=== PATIENT | female | born 1975 | race Two or more races ===

== ENCOUNTER 2023-07-11 06:04 | Inpatient (IN) | payer OTHER ==
[~2023-07-11] VITALS: Ht 167.6 cm; Wt 133.0 kg
[2023-07-11] VITALS (10 sets, daily range): BP systolic 108–159; BP diastolic 31–79; PULSE 86–121; RESP 20–38; O2SAT 88–98
[2023-07-11 07:04] LABS: Basophils # (auto) 0.1 10 ^3/uL (0-0.2); Basophils % (auto) 0.3 % (0.0-2.0); Eosinophils # (auto) 0.3 10 ^3/uL (0-0.8); Eosinophils % (auto) 1.2 % (0.0-7.0); Hematocrit 45.2 % (36.0-46.0); Hemoglobin 14.3 g/dL (12.2-16.2); Lymphocytes # (auto) 6.5 10 ^3/uL (0.4-5.4); Lymphocytes % (auto) 24.4 % (10.0-50.0); Mean Corpuscular Hemoglobin 28.9 pg (28.0-32.0); Mean Corpuscular Hgb Conc. 31.5 g/dL (32.0-36.0); Mean Corpuscular Volume 91.7 fL (80.0-100.0); Monocytes # (auto) 1.2 10 ^3/uL (0-1.3); Monocytes % (auto) 4.4 % (0.0-12.0); Neutrophils # (auto) 18.5 10 ^3/uL (1.6-8.6); Neutrophils % (auto) 69.7 % (37.0-80.0); Nucleated Red Blood Cells % 0.2 %; Red Blood Cells 4.93 10^6/uL (4.0-5.20); Red Cell Distribution Width 14.3 % (11.8-14.3); White Blood Cell 26.6 10^3/uL (4.4-10.8)
[2023-07-11 07:08] LABS: Chloride 105 mmol/L (98-107); Potassium 3.6 mmol/L (3.5-5.1); Sodium 138 mmol/L (136-145)
[2023-07-11 07:09] LABS: Anion Gap 19 (5-15); Calcium 8.8 mg/dL (8.5-10.1); Carbon Dioxide 14 mmol/L (20-30)
[2023-07-11 07:12] LABS: Base Excess -11.9 mmol/L (-2.0-2.0)
[2023-07-11 07:14] LABS: BUN/Creatinine Ratio 8.7 (10.0-20.0); Blood Urea Nitrogen 9 mg/dL (9-23); Glucose 268 mg/dL (74-106)
[2023-07-11] MEDS: fentaNYL Drip 2500mCg/250mlNS 250 ML IV SCH (07:20)
[2023-07-11] MEDS: PROPOFOL 100 ML IV SCH (07:20)
[2023-07-11] MEDS: PROPOFOL 100 ML IV ONE (07:47)
[2023-07-11] MEDS: ROCURONIUM 10MG/ML 10ML VIAL IV ONE ×2 (07:47→07:52)
[2023-07-11] MEDS: fentaNYL Drip 2500mCg/250mlNS 250 ML IV ONE (07:47)
[2023-07-11 09:20] LABS: Base Excess -9.3 mmol/L (-2.0-2.0)
[2023-07-11 09:49] LABS: Urine Bacteria FEW /hpf (None Seen); Urine Blood 1+ /uL (Negative); Urine Protein, UAD 3+ (Negative); Urine Specific Gravity 1.012 (1.001-1.035); Urine Urobilinogen Normal (Negative); Urine WBC 26 /hpf (0 - 5); Urine pH 6.5 (5.0-9.0)
[2023-07-11 09:50] LABS: Urine Clarity CLOUDY (Clear); Urine Color Yellow (Yellow)
[2023-07-11 10:03] LABS: Amphetamine Screen, Urine Neg (NEGATIVE); Barbiturate Scree,Urine Neg (NEGATIVE); Benzodiazephine Screen, Urine Neg (NEGATIVE); Cannabinoid Screen, Urine Neg (NEGATIVE); Cocaine Screen, Urine Neg (NEGATIVE); Opiate Scree,Urine Neg (NEGATIVE); Phencyclidine Screen, Urine Neg (NEGATIVE)
[2023-07-11] MEDS ORDERED: SPIR25TA8 PO (11:23)
[2023-07-11] MEDS ORDERED: FURO40TA4 PO (11:23)
[2023-07-11] MEDS ORDERED: CICL160A2 IN (11:23)
[2023-07-11] MEDS ORDERED: NORT25CA PO (11:23)
[2023-07-11] MEDS ORDERED: OMEP20TA PO (11:23)
[2023-07-11] MEDS ORDERED: [UNRECOGNIZED DRUG - CODE] SC (11:23)
[2023-07-11] MEDS ORDERED: POTA-36 PO (11:23)
[2023-07-11] MEDS ORDERED: DILT60TA PO (11:23)
[2023-07-11] MEDS ORDERED: FERR1TAB31 PO (11:23)
[2023-07-11] MEDS ORDERED: ACIT25CA2 PO (11:23)
[2023-07-11] MEDS ORDERED: NITROGLYCERIN 0.4 MG SL TAB SL PRN (11:30)
[2023-07-11] MEDS ORDERED: MORPHINE SULFATE INJ 2 MG/ml SYRG IV PRN (11:30)
[2023-07-11] MEDS ORDERED: MORPHINE SULFATE 4 MG/ML SYR/VIAL IV PRN (11:30)
[2023-07-11] MEDS ORDERED: DEXTROSE (50%) 50ML SYRG IV PRN (11:30)
[2023-07-11] MEDS: SODIUM CHLORIDE 0.9% 1,000 ML IV ONE ×2 (11:45→13:38)
[2023-07-11] MEDS: LACTULOSE 20Gm/30ML SOLN PO ONE (11:45)
[2023-07-11] MEDS: PANTOPRAZOLE 40 MG/10 ML VIAL INJ IV ONE (11:46)
[2023-07-11] MEDS: cefTRIAXone 1GM/50ML D5W 50 ML IV ONE (11:46)
[2023-07-11 11:55] LABS: Blood Alcohol < 3.0 mg/dL (<10); LDL Cholesterol 117 mg/dL (< 100); Triglycerides 100 mg/dL (< 150)
[2023-07-11 11:56] LABS: Lactic Acid w/Reflex 8.2 mmol/L (0.4-2.0)
[2023-07-11 11:57] LABS: Cholesterol 177 mg/dL (< 200); HDL Cholesterol 49 mg/dL (40-59)
[2023-07-11] MEDS: InsuLIN REG 1unit/0.01ml Soln (100units/ml) SC SCH (12:13)
[2023-07-11] MEDS: ACCU-CHEK COMFORT CURVE STRIP VI SCH (12:13)
[2023-07-11 12:46] LABS: Alanine Aminotransferase 267 U/L (7-40); Albumin 4.1 g/dL (3.2-4.8); Alkaline Phosphatase 98 U/L (46-116); Anion Gap 15 (5-15); Aspartate Aminotransferase 443 U/L (13-40); BUN/Creatinine Ratio 16.2 (10.0-20.0); Blood Urea Nitrogen 18 mg/dL (9-23); Carbon Dioxide 18 mmol/L (20-30); Chloride 107 mmol/L (98-107); Glucose 178 mg/dL (74-106); Potassium 3.7 mmol/L (3.5-5.1); Sodium 140 mmol/L (136-145)
[2023-07-11 12:47] LABS: Bilirubin, Total 0.3 mg/dL (0.2-1.0); Total Protein 6.2 g/dL (5.7-8.2)
[2023-07-11 13:02] LABS: Lactic Acid w/Reflex 3.7 mmol/L (0.4-2.0)
[2023-07-11] MEDS: IPRATROPIUM BROM 0.5 MG/2.5ML INH SOL NEB SCH (13:06)
[2023-07-11] MEDS: ALBUTEROL SULF 2.5 MG/0.5ML(0.5%) NEB SOLN NEB SCH (13:07)
[2023-07-11] MEDS: SODIUM BICARB 8.4% 50Meq/50ml SYR Vial IV ONE (13:40)
[2023-07-11 14:30] LABS: Hematocrit 41.2 % (36.0-46.0); Hemoglobin 13.3 g/dL (12.2-16.2); Mean Corpuscular Hemoglobin 28.4 pg (28.0-32.0); Mean Corpuscular Hgb Conc. 32.2 g/dL (32.0-36.0); Red Blood Cells 4.68 10^6/uL (4.0-5.20); Red Cell Distribution Width 14.2 % (11.8-14.3); White Blood Cell 20.6 10^3/uL (4.4-10.8)
[2023-07-11 14:38] LABS: Basophils % (manual) 0 (0.0-2.0); Blast Cells 0; Eosinophils % (manual) 0 (0-7); Metamyelocytes % 0; Myelocytes % 0; Promyelocytes % 0; Reactive Lymphocytes 0
[2023-07-11 14:44] LABS: INR 1.02 (0.9-1.15); Partial Thromboplastin Time 25.6 SEC (24.5-34.5); Prothrombin Time 10.7 sec (9.3-11.8)
[2023-07-11 14:47] LABS: Band Neutrophils % (manual) 6; Lymphocytes % (manual) 4 (10.0-50.0); Monocytes % (manual) 5 (0-12); Platelet Estimate Adequate; RBC Morphology Normal
[2023-07-11] MEDS: SODIUM CHLORIDE 0.9% 1,000 ML IV SCH (17:00)
[2023-07-11] MEDS: HEPARIN SODIUM (PORCINE) 5000 UNITS/ML 1ML VIAL IV ONE (17:26)
[2023-07-11] MEDS: HEPARIN DRIP/D5W 100UNITS/ML 250 ML IV SCH (18:29)
[2023-07-11] MEDS: LACTULOSE 20Gm/30ML SOLN PO SCH (22:43)
[2023-07-12] VITALS (68 sets, daily range): BP systolic 84–120; BP diastolic 39–69; PULSE 88–105; RESP 14–38; TEMP 96.9–99.6; O2SAT 85–100
[2023-07-12 03:20] LABS: INR 1.12 (0.9-1.15); Partial Thromboplastin Time 45.7 SEC (24.5-34.5); Prothrombin Time 11.7 sec (9.3-11.8)
[2023-07-12] MEDS: MIDAZOLAM DRIP 50 mg/50mL 50 ML IV SCH ×2 (03:50→14:40)
[2023-07-12] MEDS: HEPARIN DRIP/D5W 100UNITS/ML 250 ML IV SCH (03:50)
[2023-07-12 04:44] LABS: Basophils # (auto) 0.1 10 ^3/uL (0-0.2); Basophils % (auto) 0.4 % (0.0-2.0); Eosinophils # (auto) 0.3 10 ^3/uL (0-0.8); Eosinophils % (auto) 2.1 % (0.0-7.0); Hematocrit 38.8 % (36.0-46.0); Hemoglobin 12.3 g/dL (12.2-16.2); Lymphocytes % (auto) 12.6 % (10.0-50.0); Mean Corpuscular Hemoglobin 28.4 pg (28.0-32.0); Mean Corpuscular Hgb Conc. 31.7 g/dL (32.0-36.0); Mean Corpuscular Volume 89.3 fL (80.0-100.0); Monocytes # (auto) 0.8 10 ^3/uL (0-1.3); Monocytes % (auto) 5.1 % (0.0-12.0); Neutrophils # (auto) 12.4 10 ^3/uL (1.6-8.6); Neutrophils % (auto) 79.8 % (37.0-80.0); Red Blood Cells 4.34 10^6/uL (4.0-5.20); Red Cell Distribution Width 14.6 % (11.8-14.3); White Blood Cell 15.6 10^3/uL (4.4-10.8)
[2023-07-12 05:07] LABS: Alanine Aminotransferase 175 U/L (7-40); Albumin 3.6 g/dL (3.2-4.8); Alkaline Phosphatase 75 U/L (46-116); Anion Gap 13 (5-15); Aspartate Aminotransferase 115 U/L (13-40); BUN/Creatinine Ratio 11.7 (10.0-20.0); Bilirubin, Total 0.3 mg/dL (0.2-1.0); Blood Urea Nitrogen 12 mg/dL (9-23); Calcium 8.3 mg/dL (8.5-10.1); Carbon Dioxide 19 mmol/L (20-30); Chloride 108 mmol/L (98-107); Glucose 125 mg/dL (74-106); Potassium 3.5 mmol/L (3.5-5.1); Sodium 140 mmol/L (136-145)
[2023-07-12 05:49] LABS: Urine Bacteria None Seen /hpf (None Seen)
[2023-07-12 06:28] LABS: Urine Blood 3+ /uL (Negative); Urine Clarity Turbid (Clear); Urine Color Light-Brown (Yellow); Urine Protein, UAD 1+ (Negative); Urine Specific Gravity 1.049 (1.001-1.035); Urine Urobilinogen Normal (Negative); Urine WBC 7 /hpf (0 - 5)
[2023-07-12 07:08] LABS: Base Excess -7.1 mmol/L (-2.0-2.0)
[2023-07-12] MEDS ORDERED: VANCOMYCIN PER PHARMACY 0 MG IV SCH (07:30)
[2023-07-12] MEDS: MEROPENEM 1GM IVPB 50 ML IV SCH (07:30)
[2023-07-12 08:48] LABS: Hepatitis B Core Total AB Negative (Negative)
[2023-07-12] MEDS ORDERED: cefTRIAXone 1GM/50ML D5W 50 ML IV SCH (09:00)
[2023-07-12] MEDS: VANCOMYCIN 1GM/200ML 200 ML IV ONE (09:09)
[2023-07-12 09:13] LABS: Lactic Acid w/Reflex 3.2 mmol/L (0.4-2.0)
[2023-07-12 09:21] LABS: INR 1.13 (0.9-1.15); Prothrombin Time 11.8 sec (9.3-11.8)
[2023-07-12 09:31] LABS: Partial Thromboplastin Time 85.7 SEC (24.5-34.5)
[2023-07-12 09:38] LABS: Hepatitis A Total Antibody Positive (Negative); Hepatitis B Surface Antibody Negative (Negative); Hepatitis B Surface Antigen Negative (Negative); Hepatitis C Antibody Negative (Negative)
[2023-07-12] MEDS ORDERED: dilTIAZem HCL 60 MG TAB PO SCH (10:00)
[2023-07-12] MEDS ORDERED: ACITRETIN 25 MG PO SCH (10:00)
[2023-07-12 10:56] LABS: Free T3 2.24 pg/mL (2.3-4.2)
[2023-07-12 11:00] LABS: Free T4 (Free Thyroxine) 0.76 ng/dL (0.89-1.76)
[2023-07-12] MEDS: ROCURONIUM 10MG/ML 10ML VIAL IV ONE ×2 (11:00→16:29)
[2023-07-12] MEDS: fentaNYL Drip 2500mCg/250mlNS 250 ML IV SCH (11:00)
[2023-07-12] MEDS: NOREPINEPHRINE 8 MG/250ML KIT 250 ML IV SCH (11:15)
[2023-07-12] MEDS: NOREPINEPHRINE 8 MG/250ML KIT 250 ML IV ONE (11:15)
[2023-07-12] MEDS ORDERED: LACTULOSE 20Gm/30ML SOLN PO SCH (12:00)
[2023-07-12 13:38] LABS: Base Excess -9.4 mmol/L (-2.0-2.0)
[2023-07-12] MEDS: AMIODARONE 450mg/250ml AE 250 ML IV SCH ×2 (14:16→18:30)
[2023-07-12] MEDS: PROPOFOL 100 ML IV SCH (14:40)
[2023-07-12 15:32] LABS: Base Excess -9.4 mmol/L (-2.0-2.0)
[2023-07-12 16:03] LABS: Alanine Aminotransferase 154 U/L (7-40); Albumin 3.7 g/dL (3.2-4.8); Alkaline Phosphatase 70 U/L (46-116); Anion Gap 7 (5-15); Aspartate Aminotransferase 74 U/L (13-40); BUN/Creatinine Ratio 12.6 (10.0-20.0); Blood Urea Nitrogen 12 mg/dL (9-23); Calcium 8.4 mg/dL (8.7-10.4); Carbon Dioxide 22 mmol/L (20-30); Chloride 110 mmol/L (98-107); Glucose 135 mg/dL (74-106); Magnesium 1.7 mg/dL (1.6-2.6); Potassium 3.4 mmol/L (3.5-5.1); Sodium 139 mmol/L (136-145)
[2023-07-12 16:04] LABS: Bilirubin, Total 0.3 mg/dL (0.2-1.0)
[2023-07-12] MEDS: MAGNESIUM SULFATE 1GM/100ML 100 ML IV ONE (16:16)
[2023-07-12] MEDS: PANTOPRAZOLE 40 MG/10 ML VIAL INJ IV SCH (16:31)
[2023-07-12] MEDS: POTASSIUM CHL 20MEQ/100ML 100 ML IV SCH (16:32)
[2023-07-12] MEDS ORDERED: CHOL400D2 PO (16:50)
[2023-07-12] MEDS ORDERED: VITA-89 PO (16:50)
[2023-07-12] MEDS: VANCOMYCIN 1GM/200ML 200 ML IV SCH (19:40)
[2023-07-12] MEDS ORDERED: ROCURONIUM 10MG/ML 10ML VIAL IV PRN (20:30)
[2023-07-12 21:36] LABS: Base Excess -8.4 mmol/L (-2.0-2.0)
[2023-07-12 21:56] LABS: Alanine Aminotransferase 139 U/L (7-40); Albumin 3.5 g/dL (3.2-4.8); Alkaline Phosphatase 72 U/L (46-116); Anion Gap 7 (5-15); Aspartate Aminotransferase 59 U/L (13-40); BUN/Creatinine Ratio 13.1 (10.0-20.0); Blood Urea Nitrogen 13 mg/dL (9-23); Calcium 8.3 mg/dL (8.7-10.4); Carbon Dioxide 23 mmol/L (20-30); Chloride 108 mmol/L (98-107); Glucose 112 mg/dL (74-106); Magnesium 1.9 mg/dL (1.6-2.6); Potassium 3.6 mmol/L (3.5-5.1); Sodium 138 mmol/L (136-145)
[2023-07-12 21:57] LABS: Bilirubin, Total 0.5 mg/dL (0.2-1.0); Total Protein 5.8 g/dL (5.7-8.2)
[2023-07-13] VITALS (100 sets, daily range): BP systolic 83–148; BP diastolic 25–69; PULSE 75–103; RESP 12–24; TEMP 97.7–99.9; O2SAT 91–100
[2023-07-13 06:03] LABS: Basophils # (auto) 0 10 ^3/uL (0-0.2); Basophils % (auto) 0.2 % (0.0-2.0); Eosinophils # (auto) 0.6 10 ^3/uL (0-0.8); Hematocrit 37.2 % (36.0-46.0); Lymphocytes # (auto) 0.9 10 ^3/uL (0.4-5.4); Lymphocytes % (auto) 6.1 % (10.0-50.0); Mean Corpuscular Hemoglobin 28.8 pg (28.0-32.0); Mean Corpuscular Hgb Conc. 32.2 g/dL (32.0-36.0); Mean Corpuscular Volume 89.6 fL (80.0-100.0); Monocytes # (auto) 0.4 10 ^3/uL (0-1.3); Monocytes % (auto) 2.5 % (0.0-12.0); Neutrophils # (auto) 13.3 10 ^3/uL (1.6-8.6); Neutrophils % (auto) 87.2 % (37.0-80.0); Red Blood Cells 4.15 10^6/uL (4.0-5.20); Red Cell Distribution Width 14.4 % (11.8-14.3); White Blood Cell 15.3 10^3/uL (4.4-10.8)
[2023-07-13 06:14] LABS: Alanine Aminotransferase 122 U/L (7-40); Albumin 3.4 g/dL (3.2-4.8); Alkaline Phosphatase 76 U/L (46-116); Anion Gap 9 (5-15); Aspartate Aminotransferase 48 U/L (13-40); Blood Urea Nitrogen 14 mg/dL (9-23); Calcium 8.6 mg/dL (8.7-10.4); Carbon Dioxide 21 mmol/L (20-30); Chloride 107 mmol/L (98-107); Glucose 109 mg/dL (74-106); Magnesium 1.9 mg/dL (1.6-2.6); Potassium 3.8 mmol/L (3.5-5.1); Sodium 137 mmol/L (136-145)
[2023-07-13 06:15] LABS: Bilirubin, Total 0.5 mg/dL (0.2-1.0); Total Protein 5.7 g/dL (5.7-8.2)
[2023-07-13] MEDS: diphenhdrAMINE HCL 50 MG/1 ML VL IV ONE ×2 (06:21→12:04)
[2023-07-13] MEDS: FUROSEMIDE 40 MG/4 ML VIAL IV SCH (06:21)
[2023-07-13 07:16] LABS: CRP High Sensitivity 15.72 mg/dL (<1.0)
[2023-07-13 08:28] LABS: Base Excess -7.6 mmol/L (-2.0-2.0)
[2023-07-13] MEDS: ENOXAPARIN SOD 40 MG/0.4 ML SYRINGE SC SCH (10:10)
[2023-07-13] MEDS: SODIUM BICARB 8.4% 50Meq/50ml SYR Vial IV ONE (10:28)
[2023-07-13] MEDS: AMIODARONE 450mg/250ml AE 250 ML IV SCH (13:00)
[2023-07-13] MEDS: IODIXANOL 320MG/ML 100ML BTL IV ONE (14:49)
[2023-07-13] MEDS: LIDOCAINE 2%HCL (LOCAL ANESTH.) INJ 20ML MDV ONE (14:49)
[2023-07-13] MEDS: PROPOFOL 100 ML IV ONE (15:22)
[2023-07-13] MEDS: VERAPAMIL 2.5MG/ML INJ 2ML VIAL IV ONE (15:24)
[2023-07-13] MEDS: HEPARIN SODIUM (PORCINE) 5000 UNITS/ML 1ML VIAL ONE (15:51)
[2023-07-13] MEDS: LINEZOLID 600MG/300ML 300 ML IV SCH (22:09)
[2023-07-14] VITALS (107 sets, daily range): BP systolic 89–125; BP diastolic 39–69; PULSE 69–102; RESP 19–30; TEMP 96.8–100.6; O2SAT 90–100
[2023-07-14] MEDS: ACETAMINOPHEN 325 MG TAB PO PRN (04:50)
[2023-07-14] MEDS: HYDROCORTONE 1% TOPICAL CREAM 30 GM TUBE TOP SCH (07:00)
[2023-07-14 07:19] LABS: Basophils # (auto) 0 10 ^3/uL (0-0.2); Basophils % (auto) 0.2 % (0.0-2.0); Eosinophils % (auto) 5.3 % (0.0-7.0); Hematocrit 39.2 % (36.0-46.0); Hemoglobin 12.8 g/dL (12.2-16.2); Lymphocytes # (auto) 0.8 10 ^3/uL (0.4-5.4); Lymphocytes % (auto) 3.9 % (10.0-50.0); Mean Corpuscular Hemoglobin 28.9 pg (28.0-32.0); Mean Corpuscular Hgb Conc. 32.7 g/dL (32.0-36.0); Mean Corpuscular Volume 88.3 fL (80.0-100.0); Monocytes # (auto) 0.5 10 ^3/uL (0-1.3); Monocytes % (auto) 2.7 % (0.0-12.0); Neutrophils # (auto) 16.8 10 ^3/uL (1.6-8.6); Neutrophils % (auto) 87.9 % (37.0-80.0); Red Blood Cells 4.44 10^6/uL (4.0-5.20); Red Cell Distribution Width 14.3 % (11.8-14.3); White Blood Cell 19.2 10^3/uL (4.4-10.8)
[2023-07-14 07:30] LABS: Alanine Aminotransferase 89 U/L (7-40); Albumin 3.5 g/dL (3.2-4.8); Alkaline Phosphatase 114 U/L (46-116); Anion Gap 9 (5-15); Aspartate Aminotransferase 38 U/L (13-40); BUN/Creatinine Ratio 11.5 (10.0-20.0); Bilirubin, Total 0.6 mg/dL (0.2-1.0); Blood Urea Nitrogen 14 mg/dL (9-23); Calcium 8.6 mg/dL (8.5-10.1); Carbon Dioxide 25 mmol/L (20-30); Chloride 106 mmol/L (98-107); Glucose 93 mg/dL (74-106); Sodium 140 mmol/L (136-145)
[2023-07-14 07:39] LABS: CRP High Sensitivity > 20.00 mg/dL (<1.0)
[2023-07-14 07:52] LABS: Magnesium 1.8 mg/dL (1.6-2.6)
[2023-07-14 08:00] LABS: Erythrocyte Sedimentation Rate 29 mm/hr (0-20)
[2023-07-14 08:35] LABS: Base Excess -5.2 mmol/L (-2.0-2.0)
[2023-07-14] MEDS: MAGNESIUM SULFATE 1GM/100ML 100 ML IV SCH (11:01)
[2023-07-14] MEDS: POTASSIUM CHL 20MEQ/100ML 100 ML IV SCH (11:01)
[2023-07-14] MEDS: diphenhdrAMINE HCL 50 MG/1 ML VL IV ONE (11:02)
[2023-07-14] MEDS: DexAMETHasone SOD PHOS 10MG/1ML VIAL INJ IV ONE (11:02)
[2023-07-14] MEDS: SODIUM BICARB 8.4% 50Meq/50ml SYR Vial IV ONE (11:05)
[2023-07-14] MEDS: CEFEPIME 1GM/ 50ML 50 ML IV SCH (15:07)
[2023-07-15] VITALS (106 sets, daily range): BP systolic 89–143; BP diastolic 36–72; PULSE 64–84; RESP 6–27; TEMP 97.9–99.1; O2SAT 94–100
[2023-07-15 05:45] LABS: Basophils # (auto) 0 10 ^3/uL (0-0.2); Basophils % (auto) 0.1 % (0.0-2.0); Eosinophils # (auto) 0 10 ^3/uL (0-0.8); Eosinophils % (auto) 0.1 % (0.0-7.0); Hematocrit 38.9 % (36.0-46.0); Hemoglobin 12.6 g/dL (12.2-16.2); Lymphocytes % (auto) 4.4 % (10.0-50.0); Mean Corpuscular Hemoglobin 28.2 pg (28.0-32.0); Mean Corpuscular Hgb Conc. 32.3 g/dL (32.0-36.0); Mean Corpuscular Volume 87.2 fL (80.0-100.0); Monocytes # (auto) 0.8 10 ^3/uL (0-1.3); Monocytes % (auto) 3.4 % (0.0-12.0); Neutrophils # (auto) 20.9 10 ^3/uL (1.6-8.6); Red Blood Cells 4.46 10^6/uL (4.0-5.20); Red Cell Distribution Width 14.3 % (11.8-14.3); White Blood Cell 22.7 10^3/uL (4.4-10.8)
[2023-07-15 05:46] LABS: Alanine Aminotransferase 61 U/L (7-40); Albumin 3.5 g/dL (3.2-4.8); Alkaline Phosphatase 101 U/L (46-116); Anion Gap 8 (5-15); Aspartate Aminotransferase 22 U/L (13-40); BUN/Creatinine Ratio 14.4 (10.0-20.0); Bilirubin, Total 0.6 mg/dL (0.2-1.0); Blood Urea Nitrogen 14 mg/dL (9-23); Calcium 9.1 mg/dL (8.7-10.4); Carbon Dioxide 25 mmol/L (20-30); Chloride 106 mmol/L (98-107); Glucose 118 mg/dL (74-106); Magnesium 2.4 mg/dL (1.6-2.6); Potassium 3.6 mmol/L (3.5-5.1); Sodium 139 mmol/L (136-145)
[2023-07-15] MEDS: POTASSIUM CHL 20MEQ/100ML 100 ML IV SCH (06:59)
[2023-07-15 07:36] LABS: Base Excess 0.1 mmol/L (-2.0-2.0)
[2023-07-15] MEDS: FUROSEMIDE 40 MG/4 ML VIAL IV SCH (09:40)
[2023-07-15] MEDS: ceFAZolin 1GM/50ML 50 ML IV SCH (16:21)
[2023-07-15] MEDS ORDERED: ceFAZolin 1GM/50ML 50 ML IV SCH (18:00)
[2023-07-16] VITALS (106 sets, daily range): BP systolic 93–145; BP diastolic 36–93; PULSE 71–114; RESP 18–32; TEMP 97.9–99.1; O2SAT 93–100
[2023-07-16 06:30] LABS: Basophils # (auto) 0.1 10 ^3/uL (0-0.2); Basophils % (auto) 0.7 % (0.0-2.0); Eosinophils # (auto) 0.5 10 ^3/uL (0-0.8); Eosinophils % (auto) 3.3 % (0.0-7.0); Hematocrit 38.2 % (36.0-46.0); Hemoglobin 12.3 g/dL (12.2-16.2); Lymphocytes # (auto) 1.2 10 ^3/uL (0.4-5.4); Lymphocytes % (auto) 8.3 % (10.0-50.0); Mean Corpuscular Hgb Conc. 32.2 g/dL (32.0-36.0); Mean Corpuscular Volume 86.8 fL (80.0-100.0); Monocytes # (auto) 0.9 10 ^3/uL (0-1.3); Monocytes % (auto) 6.3 % (0.0-12.0); Neutrophils # (auto) 11.8 10 ^3/uL (1.6-8.6); Neutrophils % (auto) 81.4 % (37.0-80.0); Red Blood Cells 4.41 10^6/uL (4.0-5.20); Red Cell Distribution Width 14.2 % (11.8-14.3); White Blood Cell 14.6 10^3/uL (4.4-10.8)
[2023-07-16 06:53] LABS: CRP High Sensitivity 10.7 mg/dL (<1.0)
[2023-07-16 07:35] LABS: Magnesium 2.1 mg/dL (1.6-2.6)
[2023-07-16 07:47] LABS: Base Excess -0.7 mmol/L (-2.0-2.0)
[2023-07-16 08:31] LABS: Alanine Aminotransferase 39 U/L (7-40); Albumin 3.6 g/dL (3.2-4.8); Alkaline Phosphatase 88 U/L (46-116); Anion Gap 11 (5-15); Aspartate Aminotransferase 22 U/L (13-40); Bilirubin, Total 0.4 mg/dL (0.2-1.0); Blood Urea Nitrogen 18 mg/dL (9-23); Calcium 8.8 mg/dL (8.5-10.1); Carbon Dioxide 24 mmol/L (20-30); Chloride 108 mmol/L (98-107); Glucose 97 mg/dL (74-106); Potassium 3.4 mmol/L (3.5-5.1); Sodium 143 mmol/L (136-145); Total Protein 6.2 g/dL (5.7-8.2)
[2023-07-16 09:50] LABS: INR 1.03 (0.9-1.15); Partial Thromboplastin Time 25.6 SEC (24.5-34.5); Prothrombin Time 10.9 sec (9.3-11.8)
[2023-07-16] MEDS: POTASSIUM CHL 20MEQ/100ML 100 ML IV SCH (11:30)
[2023-07-16] MEDS: MEROPENEM 1GM IVPB 50 ML IV SCH (14:16)
[2023-07-17] VITALS (101 sets, daily range): BP systolic 90–135; BP diastolic 36–83; PULSE 77–110; RESP 21–25; TEMP 99–100.4; O2SAT 23–98
[2023-07-17 05:57] LABS: Alanine Aminotransferase 27 U/L (7-40); Albumin 3.3 g/dL (3.2-4.8); Alkaline Phosphatase 81 U/L (46-116); Anion Gap 10 (5-15); Aspartate Aminotransferase 25 U/L (13-40); BUN/Creatinine Ratio 22.5 (10.0-20.0); Bilirubin, Total 0.5 mg/dL (0.2-1.0); Blood Urea Nitrogen 16 mg/dL (9-23); Calcium 8.9 mg/dL (8.7-10.4); Carbon Dioxide 25 mmol/L (20-30); Chloride 108 mmol/L (98-107); Glucose 68 mg/dL (74-106); Sodium 143 mmol/L (136-145); Total Protein 5.8 g/dL (5.7-8.2)
[2023-07-17 07:59] LABS: Base Excess 2.2 mmol/L (-2.0-2.0)
[2023-07-17] MEDS ORDERED: Jevity 1.2 Cal/Fiber 1 Liter GT SCH (11:00)
[2023-07-17] MEDS: POTASSIUM CHL 20MEQ/100ML 100 ML IV SCH (11:20)
[2023-07-17] MEDS: FREE WATER GT SCH (11:53)
[2023-07-17 16:37] LABS: Chloride 105 mmol/L (98-107); Potassium 3.8 mmol/L (3.5-5.1); Sodium 142 mmol/L (136-145)
[2023-07-17 16:38] LABS: Anion Gap 10 (5-15); Calcium 9.4 mg/dL (8.7-10.4); Carbon Dioxide 27 mmol/L (20-30)
[2023-07-17 16:43] LABS: BUN/Creatinine Ratio 18.2 (10.0-20.0); Blood Urea Nitrogen 16 mg/dL (9-23); Glucose 83 mg/dL (74-106)
[2023-07-18] VITALS (84 sets, daily range): BP systolic 99–151; BP diastolic 48–97; PULSE 89–127; RESP 12–28; TEMP 99.3–99.9; O2SAT 92–100
[2023-07-18 05:02] LABS: Basophils # (auto) 0 10 ^3/uL (0-0.2); Basophils % (auto) 0.4 % (0.0-2.0); Eosinophils # (auto) 0.7 10 ^3/uL (0-0.8); Eosinophils % (auto) 5.3 % (0.0-7.0); Hematocrit 39.1 % (36.0-46.0); Hemoglobin 12.8 g/dL (12.2-16.2); Lymphocytes # (auto) 1.5 10 ^3/uL (0.4-5.4); Lymphocytes % (auto) 11.7 % (10.0-50.0); Mean Corpuscular Hemoglobin 28.6 pg (28.0-32.0); Mean Corpuscular Hgb Conc. 32.7 g/dL (32.0-36.0); Mean Corpuscular Volume 87.5 fL (80.0-100.0); Monocytes # (auto) 0.9 10 ^3/uL (0-1.3); Neutrophils # (auto) 9.8 10 ^3/uL (1.6-8.6); Neutrophils % (auto) 75.6 % (37.0-80.0); Nucleated Red Blood Cells % 0.1 %; Red Blood Cells 4.46 10^6/uL (4.0-5.20); Red Cell Distribution Width 14.1 % (11.8-14.3); White Blood Cell 12.9 10^3/uL (4.4-10.8)
[2023-07-18 05:05] LABS: Alanine Aminotransferase 23 U/L (7-40); Albumin 3.5 g/dL (3.2-4.8); Alkaline Phosphatase 83 U/L (46-116); Anion Gap 7 (5-15); Aspartate Aminotransferase 28 U/L (13-40); BUN/Creatinine Ratio 16.4 (10.0-20.0); Bilirubin, Total 0.5 mg/dL (0.2-1.0); Blood Urea Nitrogen 12 mg/dL (9-23); Carbon Dioxide 28 mmol/L (20-30); Chloride 107 mmol/L (98-107); Glucose 83 mg/dL (74-106); Magnesium 1.8 mg/dL (1.6-2.6); Potassium 3.3 mmol/L (3.5-5.1); Sodium 142 mmol/L (136-145)
[2023-07-18 05:35] LABS: CRP High Sensitivity 9.35 mg/dL (<1.0)
[2023-07-18] MEDS ORDERED: ALBUTEROL SULF 2.5 MG/0.5ML(0.5%) NEB SOLN NEB PRN (08:30)
[2023-07-18] MEDS ORDERED: IPRATROPIUM BROM 0.5 MG/2.5ML INH SOL NEB PRN (08:30)
[2023-07-18] MEDS: POTASSIUM EFFERVESENT TAB 25 MEQ GT ONE (09:55)
[2023-07-18 17:13] LABS: Base Excess 1.1 mmol/L (-2.0-2.0)
[2023-07-18] MEDS: LORazepam 2MG/ML-1ML VIAL IV PRN (23:06)
[2023-07-19] VITALS (108 sets, daily range): BP systolic 94–152; BP diastolic 43–89; PULSE 97–127; RESP 15–34; TEMP 98–99.7; O2SAT 89–100
[2023-07-19 03:52] LABS: Basophils # (auto) 0.1 10 ^3/uL (0-0.2); Basophils % (auto) 0.6 % (0.0-2.0); Eosinophils # (auto) 0.7 10 ^3/uL (0-0.8); Hematocrit 38.9 % (36.0-46.0); Hemoglobin 12.9 g/dL (12.2-16.2); Lymphocytes # (auto) 1.8 10 ^3/uL (0.4-5.4); Lymphocytes % (auto) 10.6 % (10.0-50.0); Mean Corpuscular Hemoglobin 28.9 pg (28.0-32.0); Mean Corpuscular Hgb Conc. 33.1 g/dL (32.0-36.0); Mean Corpuscular Volume 87.4 fL (80.0-100.0); Monocytes # (auto) 0.9 10 ^3/uL (0-1.3); Monocytes % (auto) 5.2 % (0.0-12.0); Neutrophils # (auto) 13.2 10 ^3/uL (1.6-8.6); Neutrophils % (auto) 79.6 % (37.0-80.0); Red Blood Cells 4.45 10^6/uL (4.0-5.20); Red Cell Distribution Width 13.9 % (11.8-14.3); White Blood Cell 16.5 10^3/uL (4.4-10.8)
[2023-07-19 03:53] LABS: Chloride 105 mmol/L (98-107); Potassium 3.5 mmol/L (3.5-5.1); Sodium 143 mmol/L (136-145)
[2023-07-19 03:54] LABS: Anion Gap 9 (5-15); Calcium 9.3 mg/dL (8.7-10.4); Carbon Dioxide 29 mmol/L (20-30)
[2023-07-19 03:59] LABS: Blood Urea Nitrogen 14 mg/dL (9-23); Glucose 93 mg/dL (74-106)
[2023-07-19] MEDS: POTASSIUM CHL 20MEQ/100ML 100 ML IV SCH (09:10)
[2023-07-19 09:24] LABS: Base Excess 4.7 mmol/L (-2.0-2.0)
[2023-07-19] MEDS: FUROSEMIDE 40 MG/4 ML VIAL IV SCH (10:38)
[2023-07-19] MEDS: FUROSEMIDE 40 MG/4 ML VIAL IV ONE (10:39)
[2023-07-19] MEDS: MAGNESIUM SULFATE 1GM/100ML 100 ML IV ONE (11:22)
[2023-07-19] MEDS: acetaZOLAMIDE SODIUM 500 MG VL IV ONE (12:02)
[2023-07-19] MEDS: FREE WATER GT SCH (14:00)
[2023-07-20] VITALS (11 sets, daily range): BP systolic 101–123; BP diastolic 46–58; PULSE 103–113; RESP 15–25; TEMP 98.3; O2SAT 94–97
[2023-07-20] MEDS ORDERED: FUROSEMIDE 40 MG/4 ML VIAL IV SCH (10:00)
[2023-07-20] MEDS ORDERED: acetaZOLAMIDE 250 MG TAB PO SCH (10:00)
== END 2023-07-20 02:42 | disposition short-term general hospital (02) | DRG 870 ==
LOC: EDBD 06:04 → ER 06:04 → TELE 11:25 → ICU CENTRL 07-12 10:34 → ICU WEST 07-18 07:25
PROVIDERS: ADMIT Internal Medicine; ATTEND Emergency Medicine
PROC: 5A1955Z Respiratory Ventilation, Greater than 96 Consecutive Hours (ICD-10-PCS; principal; 2023-07-11)
PROC: 0BH17EZ Insertion of Endotracheal Airway into Trachea, Via Natural or Artificial Opening (ICD-10-PCS; 2023-07-11)
PROC: 5A12012 Performance of Cardiac Output, Single, Manual (ICD-10-PCS; 2023-07-11)
PROC: 02HV33Z Insertion of Infusion Device into Superior Vena Cava, Percutaneous Approach (ICD-10-PCS; 2023-07-12)
PROC: B211YZZ Fluoroscopy of Multiple Coronary Arteries using Other Contrast (ICD-10-PCS; 2023-07-13)
PROC: 4A023N7 Measurement of Cardiac Sampling and Pressure, Left Heart, Percutaneous Approach (ICD-10-PCS; 2023-07-13)
PROC: B310YZZ Fluoroscopy of Thoracic Aorta using Other Contrast (ICD-10-PCS; 2023-07-13)
DX: A41.9 Sepsis, unspecified organism (principal); G93.41 Metabolic encephalopathy; I21.4 Non-ST elevation (NSTEMI) myocardial infarction; I46.9 Cardiac arrest, cause unspecified; J96.01 Acute respiratory failure with hypoxia; I50.23 Acute on chronic systolic (congestive) heart failure; R65.21 Severe sepsis with septic shock; I49.01 Ventricular fibrillation; J15.69 Pneumonia due to other Gram-negative bacteria; J15.9 Unspecified bacterial pneumonia; N39.0 Urinary tract infection, site not specified; G93.1 Anoxic brain damage, not elsewhere classified; Z68.42 Body mass index [BMI] 45.0-49.9, adult; I42.0 Dilated cardiomyopathy; I13.0 Hypertensive heart and chronic kidney disease with heart failure and stage 1 through stage 4 chronic kidney disease, or unspecified chronic kidney disease; E66.01 Morbid (severe) obesity due to excess calories; J45.909 Unspecified asthma, uncomplicated; K74.60 Unspecified cirrhosis of liver; E78.5 Hyperlipidemia, unspecified; R73.9 Hyperglycemia, unspecified; F41.9 Anxiety disorder, unspecified; F32.A Depression, unspecified; E87.6 Hypokalemia; L40.9 Psoriasis, unspecified; H70.93 Unspecified mastoiditis, bilateral; N18.9 Chronic kidney disease, unspecified; Z82.49 Family history of ischemic heart disease and other diseases of the circulatory system; Z79.899 Other long term (current) drug therapy
CPT/HCPCS: 31500; 36415; 36600; 70450; 70551; 71045; 71275; 75605; 76604; 80048; 80053; 80061; 80307; 80320; 81001; 82140; 82550; 82805; 82962; 83036; 83605; 83735; 83880; 84100; 84439; 84443; 84481; 84484; 84702; 85007; 85025; 85027; 85379; 85610; 85652; 85730; 86141; 86703; 86704; 86706; 86708; 86803; 87040; 87070; 87077; 87081; 87086; 87186; 87205; 87340; 92950; 93005; 93306; 93458; 93970; 94002; 94003; 94640; 95819; 96361; 96365; 96375; 99152; 99291; A4605; C9113; G0378; J1100; J1815; J2185; J2250; J2704; J3480; Q9967